=== PATIENT | female | born 1965 | race Caucasian/White ===

== ENCOUNTER 2017-01-12 01:47 | Emergency (ER) | payer OTHER ==
[~2017-01-12] VITALS: Ht 162.6 cm; Wt 90.0 kg
[~2017-01-12 01:47] MED LIST: ALBU8.5H5 INH; BUPR300T4 PO; CETI10CA PO; DOXY100C2 PO; FLUT1DIS3 INH; FLUT9.9S NAS; LAMO150T3 PO; MONT10TA6 PO; MORP15TA39 PO; OXYC-302 PO; PROM25SU34 RC; SERT100T PO
[2017-01-12 02:42] LABS: BLOOD UREA NITROGEN 6 mg/dL (7-18)
[2017-01-12 02:49] LABS: IS PT STATUS REG ER OR PRE ER? YES
[2017-01-12] MEDS ORDERED: OMNIPAQUE 350 MG/ML, 100ML BOTTLE ONE (03:18)
[2017-01-12 04:38] VITALS: BP 108/48
== END 2017-01-12 04:46 | disposition home or self-care (01) ==
LOC: ED 04:40
DX: R06.00 Dyspnea, unspecified (principal); J45.909 Unspecified asthma, uncomplicated; Z88.2 Allergy status to sulfonamides; Z88.1 Allergy status to other antibiotic agents; Z87.891 Personal history of nicotine dependence
CPT/HCPCS: 36415; 71275; 80048; 82040; 83880; 84484; 85025; 93005; 93971; 99285; Q9967